=== PATIENT | male | born 2000 | race Caucasian/White ===

== ENCOUNTER 2024-10-06 00:18 | Emergency (ER) | payer SELFPAY ==
[2024-10-06 00:20] VITALS: BP 117/78; PULSE 76; RESP 18; TEMP 36.6; O2SAT 100; BMI 19.0
--- OUTSIDE RECORDS SUMMARY | 2024-10-06 00:32 | XMS_ITS | Clinical Summary ---
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 30 tablet 2 Active methylphenidate HCl 36 mg ER tabletIndications: attention-deficit hyperactivity disorder Take 1 tablet (36 mg total) by mouth every morning. 28 tablet 2 Active Active Problems Problem Noted Date Diagnosed Date ADHD (attention deficit hyperactivity disorder) evaluation 04/08/2021 Anxiety and depression 07/16/2020 Immunizations Immunization Administration Dates Next Due DTaP 04/30/2006, 4,2001,2001, 2001 HPV-9 Valent 01/09/2015 Hep B / HiB 2001,2001,2001 Hepatitis A (peds) 12/09/2006,04/30/2006 Hib (PRT-T) 03/09/2002 IPV 04/30/2006,2001,2001 ,2001 MMR 08/08/2003 MMRV 04/30/2006 Pneumococcal Conjugate 7-Valent 03/09/2002,09/20,2001,2001 Tdap 01/09/2015 Varicella 03/09/2002 Family History Medical History Relation Name Comments ADD / ADHD Brother 1 triplet No Known Problems Brother 2 triplet No Known Problems Brother 3 half No Known Problems Father Seizures Maternal Grandfather Asthma Maternal Grandmother Anxiety disorder Mother Lung cancer Paternal Grandmother Tobacco Use Paternal Grandmother No Known Problems Sister full Relation Name Status Comments Brother 1 triplet Alive Brother 2 triplet Alive Brother 3 half Alive Father Alive Maternal Grandfather Alive Maternal Grandmother Alive Mother Alive Paternal Grandfather unknown Paternal Grandmother Sister full Alive Social History Tobacco Use Types Packs/Day Years Used Date Smoking Tobacco: Former Electronic Cigarettes Quit: 04/10/2020 Smokeless Tobacco: Never Alcohol Use Standard Drinks/Week Comments Not Currently 0 (1 standard drink = 0.6 oz pur e alcohol) Sex and Gender Information Value Date Recorded Sex Assigned at Not on file 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 Gender Identity Not on file Sexual Orientation Not on file Occupation Industry Job Start Date Job End Date Not on file Not on file Not on file Not on file Last Filed Vital Signs Vital Sign Reading Time Taken Comments Blood Pressure 116/60 03/03/2021 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 Pulse 74 03/03/2021 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 Temperature 36.3 C (97.3 F) 03/03/2021 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 Respiratory Rate 16 03/03/2021 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 Oxygen Saturation 99% 03/03/2021 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 Inhaled Oxygen Concentration - - Weight 64.3 kg (141 lb 12.8 oz) 03/03/2021 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 Height 182.9 cm (6') 03/03/2021 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 Body Mass Index 19.23 03/03/2021 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 Plan of Treatment Health Maintenance Due Date Last Done Comments HPV Vaccine (2 - Male 2-dose series) 07/11/2015 01/09/2015 Meningococcal B (1 of 2 - Standard) 2017 Influenza Vaccine (#1) 2025 Td/Tdap# 01/09/2025 01/09/2015, 04/06, 08/08/2003, Additional history exists Hepatitis B Vaccine Completed 2001, 2001, 2001 Pneumococcal Vaccine: Pediatrics (0 to 5 Years) and At-Risk Patients (6 to 49 Years) Aged Out 03/09/2002, 2001, 2001, Additional history exists No longer eligible based on patient's age to complete this topic Insurance PREFERRED CARE BLUE PREFERRED CARE BLUE [facility] PREFERRED CARE BLUE [facility] PREFERRED CARE BLUE [facility] PREFERRED CARE BLUE
--- NOTE | 2024-10-06 01:47 | W.ED.WOUNDLC ---
Documented by User: Katherine Maya NP 10/06/24 16:58 HPI - Wound/Laceration General: Chief Complaint: Wound/Laceration Stated Complaint: Fell and cut nose on rock Time Seen by Provider: 10/06/24 00:46 Related Data Previous Rx's ?Medication ?Instructions ?Recorded clindamycin HCl 300 mg capsule 300 mg PO TID 7 days #21 caps 10/06/24 (Cleocin HCl) Allergies Allergy/AdvReac Type Severity Reaction Status Date / Time No Known Allergies Allergy Verified 10/06/24 00:25 Procedures Laceration Laceration 1: Site: face Size (cm): 2 Description: flap and irregular Local Anesthetic: lidocaine 1% Amount of anesthesia used (mL): 5 Pre-repair: wound explored and irrigated extensively Skin layer closed with: nylon Size (cm): 5-0 Number of sutures: 11 Technique: simple, interrupted Course Vital Signs: Vital signs: Vital Signs Temperature 97.8 F 10/06/24 00:20 Pulse Rate 84 10/06/24 02:24 Respiratory Rate 18 10/06/24 02:24 Blood Pressure 111/73 10/06/24 02:24 Pulse Oximetry 98 10/06/24 02:24 Oxygen Delivery Me thod Room Air 10/06/24 00:20 Discharge Plan Discharge Patient Disposition: Home Clinical Impression: Laceration Condition: Stable Prescriptions: New clindamycin HCl [Cleocin HCl] 300 mg capsule 300 mg PO TID 7 Days Qty: 21 0RF Discharge Orders: Discharge ED (Routine); Ordered 10/06/24 Ordered By: Evans Mosqueda Referrals: Vignesh Bee MD [Physician, Ear, Nose, Throat] Discharge Diet: Advance as tolerated Discharge Activity: Resume usual activity Patient Instructions: Opioid Safety, Pain Management, Patient Portal & Nicolas Instructions Activity Restrictions/Additional Instructions: Follow-up with ENT and have sutures removed in 7 to 10 days. Print Language: Ecuadorean Coding Level of Care Code ED Director Corporate Compliance for Chg Fwd Documented by User: Evans Mosqueda MD 10/06/24 02:00 HPI - Wound/Laceration General: Chief Complaint: Wound/Laceration Stated Complaint: Fell and cut nose on rock Time Seen by Provider: 10/06/24 00:46 History of Present Illness: Patient was trying to walk out of his camper and he fell forward hitting his face. He did catch his nose on a rock and lacerated the distal tip and the superficial nasal septum Related Data Previous Rx's ?Medication ?Instructions ?Recorded clindamycin HCl 300 mg capsule 300 mg PO TID 7 days #21 caps 10/06/24 (Cleocin HCl) Allergies Allergy/AdvReac Type Severity Reaction Status Date / Time No Known Allergies Allergy Verified 10/06/24 00:25 Physical Exam Const: COMMON NORMALS: no acute distress, average body habitus, patient oriented x3, no limitations, healthy appearing, alert and well nourished HENMT: COMMON NORMALS: normocephalic, hearing grossly normal bilaterally, external ears normal, EAC's normal, TM's normal bilaterally, Normal nasal mucous membranes and turbinates present, moist oral mucous membranes, oropharynx normal, dentition normal and gingiva normal; head/scalp not atraumatic and external nose not normal (Laceration of the distal tip as well as the septum) HEAD & SCALP: normocephalic; not atraumatic NOSE: Normal nasal mucous membranes and turbinates present; external nose not normal (Laceration of the distal tip as well as the septum) EXTERNAL EAR: Yes external ears normal EXTERNAL AUDITORY CANAL: EAC's normal TYMPANIC MEMBRANE: TM's normal bilaterally Neck/C-Spine: COMMON NORMALS: full ROM, no lymphadenopathy, supple, no meningeal signs, no JVD, Thyroid normal and No carotid bruits THYROID: Thyroid normal Resp: COMMON NORMALS: normal respiratory effort, No retractions, No use of accessory muscles, clear to auscultation bilaterally and percussion normal AUSCULTATION: clear to auscultation bilaterally PERCUSSION: percussion normal Cardio: COMMON NORMALS: no JVD, regular rate, regular rhythm, S1 normal heart sound present, S2 normal heart sound present, No gallops present (Cardio), No clicks present (Cardio), No murmurs present (Cardio), No rub (Cardio) and Peripheral pulses 2+ throughout RATE: regular rate RHYTHM: regular rhythm HEART SOUNDS: S1 normal heart sound present and S2 normal heart sound present PERIPHERAL PULSES: Peripheral pulses 2+ throughout Neuro: COMMON NORMALS: patient oriented x3 SENSORIUM/ORIENTATION: Yes alert MENINGEAL SIGNS: Yes no meningeal signs Course Vital Signs: Vital signs: Vital Signs Temperature 97.8 F 10/06/24 00:20 Pulse Rate 84 10/06/24 02:24 Respiratory Rate 18 10/06/24 02:24 Blood Pressure 111/73 10/06/24 02:24 Pulse Oximetry 98 10/06/24 02:24 Oxygen Delivery Me thod Room Air 10/06/24 00:20 MDM - Wound/Laceration Medical Decision Making Patient lacerated his nose while falling out of the trailer. Denies any head injury or neck pain otherwise. Tetanus is up-to-date. Wound was sutured by nurse practitioner Macey. Please see her note for details on suturing. Will have patient follow-up with the ENT. No radiology studies performed this visit Discharge Plan Discharge Patient Disposition: Home Clinical Impression: Laceration Condition: Stable Prescriptions: New clindamycin HCl [Cleocin HCl] 300 mg capsule 300 mg PO TID 7 Days Qty: 21 0RF Discharge Orders: Discharge ED (Routine); Ordered 10/06/24 Ordered By: Evans Mosqueda Referrals: Vignesh Bee MD [Physician, Ear, Nose, Throat] Discharge Diet: Advance as tolerated Discharge Activity: Resume usual activity Patient Instructions: Opioid Safety, Pain Management, Patient Portal & Nicolas Instructions Activity Restrictions/Additional Instructions: Follow-up with ENT and have sutures removed in 7 to 10 days. Print Language: Ecuadorean Coding Level of Care Code ED Director Corporate Compliance for Bobby Cantrell
[2024-10-06 02:24] VITALS: BP 111/73; PULSE 84; RESP 18; O2SAT 98
== END 2024-10-06 02:15 | disposition home or self-care (01) ==
PROVIDERS: Emergency Provider Emergency Medicine
DX: S01.81XA Laceration without foreign body of other part of head, initial encounter (principal); W19.XXXA Unspecified fall, initial encounter
CPT/HCPCS: 12011; 99283